=== PATIENT | female | born 1985 | race Asian ===

== ENCOUNTER → 2018-05-13 14:54 | Outpatient (CLI) | payer OTHER, SELFPAY ==
--- NOTE | 2018-05-13 16:00 | DI.ECHO.S_ITS ---
Echocardiogram Report + + :Name: CINDY GARCIA Study Date: 05/13/2018 Height: 60 in : :[facility] Weight: 115 lb : : Gender: Female BSA: 1.5 m2 : :: 1985 Age: 33 yrs BP: 102/64 mmHg: :Reason For Study: ILL-DEFINED CARDIAC DISEASE : : Performed By: Yaritza Donato : :Referring: ABDI CARPIO : + + Interpretation Summary The left ventricle is normal in size, wall thickness, and systolic function without any focal wall motion abnormalities. The ejection fraction is estimated to be 60-65%. The right ventricle is normal in size and function. No significant valvular pathology. The IVC is of normal diameter and collapses greater than 50% with a sniff. This suggests a low right atrial pressure of 3 mm Hg. Procedure: A two-dimensional transthoracic echocardiogram with color flow and Doppler was performed. The study quality was technically good. There is no prior echocardiogram noted for this patient. The heart rate ranged between 70- 80 bpm during the study. The patient was in normal sinus rhythm during the exam. Left Ventricle: The left ventricle is normal in size, wall thickness, and systolic function without any focal wall motion abnormalities. There is no ventricular septal defect visualized. The ejection fraction is estimated to be 60-65%. Diastolic parameters suggest probable normal left ventricular diastolic function and normal filling pressures. Right Ventricle: The right ventricle is normal in size and function. Atria: Both atria are normal in size. There is no Doppler evidence for an interatrial shunt. Mitral Valve: The mitral valve is normal in structure and function. There is trace mitral regurgitation. Aortic Valve: The aortic valve is normal in structure and function. There is no aortic valve stenosis. No aortic regurgitation is present. Tricuspid Valve: The tricuspid valve is normal in structure and function. There is a trace or physiologic amount of tricuspid regurgitation. Pulmonary artery pressures cannot be estimated because of the lack of a measurable TR jet velocity. Pulmonic Valve: The pulmonic valve is normal in structure and function. There is a trace or physiologic amount of pulmonic regurgitation. Great Vessels: The aortic root is normal size. The ascending aorta is normal in size. The aortic arch is normal in size. The pulmonary artery is normal size. The IVC is of normal diameter and collapses greater than 50% with a sniff. This suggests a low right atrial pressure of 3 mm Hg. Pericardium/ Pleura There is no pericardial effusion. There is no pleural effusion. MMode/2D Measurements & Calculations LVIDd: 4.3 cm LVOT diam: 1.8 cm LVIDs: 2.8 cm Ao root diam: 2.6 cm FS: 33.9 % asc Aorta Diam: 2.3 cm IVSd: 0.53 cm Ao Arch Diam (Prox Trans): 2.2 cm LVPWd: 0.60 cm LV russo. diameter/BSA (cm/m^2): 2.9 LV sys. diameter/BSA (cm/m^2): 1.9 LA A2 area: 14.3 cm2 RA long axis: 4.8 cm LA A4 area: 14.7 cm2 RA area: 13.5 cm2 LA length (vol): 4.9 cm RA vol: 32.8 ml LA vol: 36.5 ml RA : 22.2 ml/m2 LA vol index: 24.7 ml/m2 IVC diam: 1.6 cm RVD1 (basal): 2.7 cm Doppler Measurements & Calculations Ao V2 max: 133.2 cm/sec LVOT Max Gil: 88.4 cm/sec Ao V2 mean: 97.3 cm/sec LV V1 max P.1 mmHg Ao max P.1 mmHg LV V1 VTI: 18.1 cm Ao mean P.1 mmHg AMLO(I,D): 1.8 cm2 Ao V2 VTI: 25.9 cm AMOL(V,D): 1.7 cm2 sev ratio: 0.70 AMOL indexed to BSA (cm^2/m^2): 1.2 MV E max gil: 76.7 cm/sec PA V2 max: 79.8 cm/sec MV A max gil: 42.8 cm/sec PA V2 mean: 53.1 cm/sec MV E/A: 1.8 PA mean P.3 mmHg Med Peak E' Gil: 12.3 cm/sec E/E' med: 6.2 Lat Peak E' Gil: 19.3 cm/sec E/E' lat: 4.0 E/e' average: 5.1 MV dec time: 0.26 sec _ Reading Physician:JOSE
== END ==
PROVIDERS: Visit Provider Family Medicine
DX: I51.89 Other ill-defined heart diseases (principal)
CPT/HCPCS: 93306

== ENCOUNTER → 2018-05-26 15:53 | Outpatient (CLI) | payer OTHER, SELFPAY ==
--- NOTE | 2018-05-26 | DI.MRI.S_ITS ---
PROCEDURE: MR HEAD/BRAIN WO CON INDICATIONS: HEADACHE TECHNIQUE: Noncontrast axial T1 spin echo, axial T2 fast spin echo, sagittal and axial FLAIR, coronal T2 fast spin echo, axial gradient echo, axial diffusion and ADC through the brain. COMPARISON: None. FINDINGS: Image quality: Excellent. CSF Spaces: Basal cisterns are patent. No extra-axial fluid collections. Ventricles are normal in size and shape. Brain: No intracranial masses or hemorrhage. Burciaga/white matter interface is normal. Brainstem appears normal. Diffusion-weighted images demonstrate no acute ischemic insult. No chronic ischemic insults. Normal intravascular flow voids are present. Skull and face: Calvarium has normal marrow signal. Orbits appear normal. Sinuses: Mild mucosal thickening noted in the maxillary sinuses, the sphenoid sinuses, the ethmoid air cells and the frontal sinuses. The mastoids are clear. IMPRESSION: 1. No intracranial disease process. 2. No abnormal intracranial mass. 3. No abnormal intracranial signal. 4. Mild pansinusitis. Dictated by: Nanda Bass MD, PhD on 05/26/2018 at 17:16 Approved by: Nanda Bass MD, PhD on 05/26/2018 at 17:19
== END ==
PROVIDERS: PCP Nurse Practitioner Family; Visit Provider Internal Medicine
DX: R51 Headache (principal); J32.4 Chronic pansinusitis
CPT/HCPCS: 70551